=== PATIENT | male | born 1990 | race Hispanic/Latino ===

== ENCOUNTER 2016-08-11 14:25 | Emergency (ER) | payer SELFPAY ==
[~2016-08-11] VITALS: Ht 188 cm; Wt 104.5 kg
[2016-08-11 14:28] VITALS: BP 131/77; PULSE 83; RESP 20; O2SAT 100
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
[2016-08-11] MEDS ORDERED: HYDROmorphone 0.5 mg/0.5 mL iSecure Syringe IVPUSH PRN (15:40)
[2016-08-11] MEDS ORDERED: Ondansetron 2 mg/mL 2 mL Inj IVPUSH ONE (15:40)
--- NOTE | 2016-08-11 16:24 | DRSVH ---
PROCEDURE: X-RAY RIGHT SHOULDER, MINIMUM TWO VIEWS ([id number]) INDICATIONS: Pain TECHNIQUE: 3 views of the shoulder were acquired. COMPARISON: None. FINDINGS: Bones: There is widening of the acromioclavicular joint. No acute fracture dislocation. Visualized po rtions of the ribs are intact. Soft tissues: No suspicious soft tissue calcifications. IMPRESSION: Grade III acromioclavicular joint separation. Dictated by: Petra Stone M.D. on 08/11/2016 at 16:22 Approved by: Petra Stone M.D. on 08/11/2016 at 16:23
[2016-08-11] MEDS ORDERED: HYDR-4003 PO (16:27)
[2016-08-11 16:58] VITALS: BP 136/88; PULSE 81; RESP 20; O2SAT 100
== END 2016-08-11 17:05 | disposition home or self-care (01) ==
LOC: SED 14:25
DX: S43.101A Unspecified dislocation of right acromioclavicular joint, initial encounter (principal); V86.59XA Driver of other special all-terrain or other off-road motor vehicle injured in nontraffic accident, initial encounter; Y92.89 Other specified places as the place of occurrence of the external cause; Y99.8 Other external cause status
CPT/HCPCS: 73030; 96374; 96375; 99284; J1170; J2405